=== PATIENT | female | born 1970 | race Caucasian/White ===

== ENCOUNTER 2018-11-24 18:21 | Emergency (ER) | payer SELFPAY ==
[~2018-11-24] VITALS: Ht 172.7 cm; Wt 63.5 kg
[2018-11-24 18:58] VITALS: BP 172/102
== END 2018-11-24 18:59 | disposition left against medical advice (07) ==
LOC: ER 18:24
DX: S61.211A Laceration without foreign body of left index finger without damage to nail, initial encounter (principal); F17.210 Nicotine dependence, cigarettes, uncomplicated; W26.0XXA Contact with knife, initial encounter
CPT/HCPCS: 99281

== ENCOUNTER 2019-08-05 19:57 | Emergency (ER) | payer SELFPAY ==
[~2019-08-05] VITALS: Ht 172.7 cm; Wt 63.5 kg
[2019-08-05 20:03] VITALS: BP 142/98
--- NOTE | 2019-08-05 20:05 | ED GU-Female ---
General Chief Complaint: - Urinary Stated Complaint: UTI SYMPTOMS Source: patient Exam Limitations: no limitations History of Present Illness Date Seen by Provider: Aug 05, 2019 Time Seen by Provider: 20:04 Initial Comments To ER with urinary frequency burning pressure that began 3 days ago, intermittent flank pain is not consistent with no vomiting no fevers. Timing/Duration: other (3 days) Severity/Quality: moderate Location: suprapubic Radiation: none Prior Genitourinary Problems: none Associated Symptoms: denies symptoms Allergies and Home Medications Allergies Coded Allergies: No Known Drug Allergies (Unverified , 08/05/19) Home Medications Sulfamethoxazole/Trimethoprim 1 Each Tablet, 1 EACH PO BID Prescribed by: MAXX CALIX on 08/05/192052 Patient Home Medication List Home Medication List Reviewed: Yes Review of Systems Review of Systems Constitutional: see HPI EENTM: see HPI Respiratory: no symptoms reported Cardiovascular: no symptoms reported Genitourinary: see HPI, burning, dysuria, frequency Musculoskeletal: see HPI Skin: no symptoms reported Psychiatric/Neurological: No Symptoms Reported Endocrine: No Symptoms Reported Hematologic/Lymphatic: No Symptoms Reported Past Kuazftq-Uibckt-Qlsjgc Hx Patient Social History Type Used: Cigarettes 2nd Hand Smoke Exposure: Yes Recent Hopitalizations: No Seasonal Allergies Seasonal Allergies: No Past Medical History Surgeries: No Respiratory: No Cardiac: No Neurological: No Genitourinary: No Gastrointestinal: No Musculoskeletal: No Endocrine: No HEENT: No Cancer: No Psychosocial: No Integumentary: No Physical Exam Vital Signs Vital Signs - First Documented 08/05/19 20:03 Temp 99.4 Pulse 109 Resp 18 B/P (MAP) 142/98 (113) Pulse Ox 98 Capillary Refill : Height, Weight, BMI Height: 5'8.00" Weight: 140lbs. 0oz. 63.832858mb; BMI Method:Stated General Appearance: WD/WN, no apparent distress Neck: non-tender, full range of motion Cardiovascular: no murmur, tachycardia Respiratory: no respiratory distress, no accessory muscle use Gastrointestinal: normal bowel sounds, soft Back: No CVA tenderness (R); CVA tenderness (L) Extremities: normal range of motion, non-tender Neurologic/Psychiatric: alert, normal mood/affect, oriented x 3 Skin: normal color, warm/dry Progress/Results/Core Measures Suspected Sepsis SIRS Temperature: Pulse: Respiratory Rate: Blood Pressure / Mean: Results/Orders Lab Results Laboratory Tests Test 08/05/19 20:12 Range/Units Urine Color ORANGE H Urine Clarity SL CLOUDY Urine pH 7 5-9 Urine Specific Straughn 1.015 L 1.016-1.022 Urine Protein 4+ NEGATIVE Urine Glucose (UA) NEGATIVE NEGATIVE Urine Ketones NEGATIVE NEGATIVE Urine Nitrite POSITIVE H NEGATIVE Urine Bilirubin 3+ H NEGATIVE Urine Urobilinogen 12 H NORMAL MG/DL Urine Leukocyte Esterase 3+ H NEGATIVE Urine RBC (Auto) 4+ H NEGATIVE Urine RBC 5-10 H /HPF Urine WBC >100 H /HPF Urine Squamous Epithelial Cells 2-5 /HPF Urine Crystals NONE /LPF Urine Bacteria MODERATE H /HPF Urine Casts NONE /LPF Urine Mucus SMALL H /LPF Urine Culture Indicated YES Urine Opiates Screen NEGATIVE NEGATIVE Urine Oxycodone Screen NEGATIVE NEGATIVE Urine Methadone Screen NEGATIVE NEGATIVE Urine Propoxyphene Screen NEGATIVE NEGATIVE Urine Barbiturates Screen NEGATIVE NEGATIVE Ur Tricyclic Antidepressants Screen NEGATIVE NEGATIVE Urine Phencyclidine Screen NEGATIVE NEGATIVE Urine Amphetamines Screen POSITIVE H NEGATIVE Urine Methamphetamines Screen POSITIVE H NEGATIVE Urine Benzodiazepines Screen NEGATIVE NEGATIVE Urine Cocaine Screen NEGATIVE NEGATIVE Urine Cannabinoids Screen POSITIVE H NEGATIVE My Orders Orders - MAXX CALIX APRN Ua Culture If Indicated (08/05/19 20:00) Drug Screen Stat (Urine) (08/05/19 20:02) Urine Bedside (08/05/19 20:03) Urine Culture (08/05/19 20:12) Sulfamethoxazole/Trimet Ds Tab (Bactrim (08/05/19 21:00) Vital Signs/I&O 08/05/19 20:03 Temp 99.4 Pulse 109 Resp 18 B/P (MAP) 142/98 (113) Pulse Ox 98 Capillary Refill : Departure Communication (Admissions) 2100-went to discharge the patient and she is no longer in the room. Impression Primary Impression: Urinary tract infection Qualified Codes: N30.00 - Acute cystitis without hematuria Additional Impression: left before discharge Disposition: 01 HOME, SELF-CARE Condition: Stable Departure-Patient Inst. Decision time for Depature: 20:52 Referrals: NO,LOCAL PHYSICIAN (PCP/Family) Primary Care Physician Patient Instructions: Urinary Tract Infection, Adult (DC) Scripts Sulfamethoxazole/Trimethoprim (Bactrim Ds Tablet) 1 Each Tablet 1 EACH PO BID, #14 TAB Prov: MAXX CALIX APRN 08/05/19 MAXX CALIX APRN Aug 05, 2019 20:05
[2019-08-05 20:19] LABS: GLUCOSE, URINE (UA) NEGATIVE (NEGATIVE); KETONES,URINE NEGATIVE (NEGATIVE); LEUKOCYTE ESTERASE ,URINE 3+ (NEGATIVE); NITRITE,URINE POSITIVE (NEGATIVE); PROTEIN,URINE 4+ (NEGATIVE); UROBILINOGEN,URINE 12 MG/DL (NORMAL)
[2019-08-05 20:33] LABS: CLARITY,URINE SL CLOUDY; COLOR,URINE ORANGE
[2019-08-05 20:38] LABS: BILIRUBIN,URINE 3+ (NEGATIVE); PH,URINE 7 (5-9)
[2019-08-05 20:39] LABS: BACTERIA,URINE MODERATE /HPF; WBC,URINE >100 /HPF
[2019-08-05 20:40] LABS: AMPHETAMINE SCREEN, URINE POSITIVE (NEGATIVE); BARBITURATE SCREEN URINE NEGATIVE (NEGATIVE); BENZODIAZEPINES SCREEN URINE NEGATIVE (NEGATIVE); CANNABINOID SCREEN, URINE POSITIVE (NEGATIVE); COCAINE SCREEN URINE NEGATIVE (NEGATIVE); METHADONE STAT NEGATIVE (NEGATIVE); METHAMPHETAMINE SCREEN URINE S POSITIVE (NEGATIVE); OPIATE SCREEN URINE NEGATIVE (NEGATIVE); OXYCODONE STAT NEGATIVE (NEGATIVE); PROPOXYPHENE STAT NEGATIVE (NEGATIVE); TRICYCLIC ANTIDEPRESSANTS SCRE NEGATIVE (NEGATIVE)
[2019-08-05] MEDS ORDERED: SULF1TAB35 PO (20:53)
[2019-08-05] MEDS ORDERED: TRIM/SULFAMETH 160/800 (SEPTRA DS) TAB PO ONE (21:00)
== END 2019-08-05 21:05 | disposition home or self-care (01) ==
LOC: EDUNIT# 19:57 → ER 19:58
DX: N39.0 Urinary tract infection, site not specified (principal); Z77.22 Contact with and (suspected) exposure to environmental tobacco smoke (acute) (chronic)
CPT/HCPCS: 80306; 81000; 84703; 87077; 87088; 99282

== ENCOUNTER 2022-07-05 23:36 | Emergency (ER) | payer SELFPAY ==
[~2022-07-05 23:36] MED LIST: SULF1TAB38 PO
[2022-07-06] MEDS ORDERED: RX-NAPROXEN (NAPROSYN) 250 MG TAB PPK#4 PO STA (02:21)
[2022-07-06] MEDS ORDERED: TRAM-42 PO (02:25)
[2022-07-06] MEDS ORDERED: NAPR500T8 PO (02:25)
--- NOTE | 2022-07-06 02:25 | ED Lower Extremity ---
General Chief Complaint: Lower Extremity Stated Complaint: RT KNEE PX,PER PT NO FALL OR INJURY Nursing Triage Note: PT ARRIVAL TO ER WITH COMPLAINT OF RIGHT KNEE PAIN X3 DAYS. PT DENIES INJURY OR TRAUMA. PT STATES THAT IT HAS DONE THIS BEFORE AND JUST WENT AWAY AFTER TWO DAYS. PT STATES THAT THIS TIME ITS MORE SEVERE. PT DENIES TAKING ANYTHING FOR THE PAIN. NOTICEABLE SWELLING TO KNEE. Source: patient History of Present Illness Date Seen by Provider: Jul 06, 2022 Time Seen by Provider: 01:40 Initial Comments PT ARRIVES VIA POV FROM HOME C/O RIGHT KNEE PAIN AND SWELLING X 3 DAYS NO INJURY OR UNUSUAL ACTIVITY NO SQUATTING, NO CLIMBING STAIRS/LADDERS, ETC. NO NEW SHOES, ETC. HAD THE SAME THING HAPPEN ABOUT A YEAR AGO, WITHOUT AN INJURY, BUT IT WENT AWAY AFTER A COUPLE OF DAYS--NEVER SOUGHT CARE STATES THE PAIN AND SWELLING IS MUCH WORSE THIS TIME. NO OTHER JOINTS ARE INVOLVED NO PARESTHESIAS OR MOTOR DEFICITS STATES SHE CANNOT PUT ANY WEIGHT ON IT. HAS NOT TAKEN ANYTHING FOR PAIN PT HAS HISTORY OF HTN, BUT SELF DC'D HER MEDICATION OVER 6 MONTHS AGO--HAS NO IDEA WHAT MEDICATION SHE WAS PRESCRIBED DENIES ANY OTHER MEDICAL PROBLEMS, AND DOES NOT TAKE ANY DAILY MEDICATIONS Allergies and Home Medications Allergies Coded Allergies: No Known Drug Allergies (Unverified , 08/05/19) Patient Home Medication List Naproxen (Naproxen) 500 Mg Tablet.dr, 500 MG PO BID Prescribed by: JOSELUIS VILA on 07/06/22224 Sulfamethoxazole/Trimethoprim (Bactrim Ds Tablet) 1 Each Tablet, 1 EACH PO BID Prescribed by: MAXX CALIX on 08/05/192052 Tramadol HCl (Ultram) 50 Mg Tablet, 50 MG PO Q4H Prescribed by: JOSELUIS VILA on 07/06/22224 Review of Systems Constitutional: no symptoms reported Musculoskeletal: see HPI Skin: no symptoms reported Psychiatric/Neurological: No Symptoms Reported Past Uwgqxus-Wtatsa-Xfdglz Hx Patient Social History Tobacco Use?: Yes Tobacco type used: Cigarettes Smoking Status: Current Everyday Smoker Use of E-Cig and/or Vaping dev: No Substance use?: No Alcohol Use?: No Pt feels they are or have been: No Immunizations Up To Date Influenza Vaccine Up-to-Date: Yes; Up-to-Date Third COVID19 Vaccination Date: 09/18 COVID19 Vaccine Jinriksha Driver: MODERNA Seasonal Allergies Seasonal Allergies: No Past Medical History Surgeries: No Respiratory: No Cardiac: Yes Hypertension Neurological: No Genitourinary: No Gastrointestinal: No Musculoskeletal: Yes (RIGHT KNEE PAIN ) Endocrine: No HEENT: No Cancer: No Psychosocial: No Integumentary: No Blood Disorders: No Physical Exam Vital Signs Vital Signs - First Documented 07/06/22 00:15 Temp 37.1 Pulse 93 Resp 18 B/P (MAP) 192/96 (128) Pulse Ox 99 O2 Delivery Room Air Capillary Refill : Less Than 3 Seconds Height, Weight, BMI Height: 5'8.00" Weight: 140lbs. 0oz. 63.970108ln; BMI Method:Stated Progress/Results/Core Measures Results/Orders My Orders Orders - JOSELUIS VILA DO Knee, Right, 3 Views (07/06/22 01:48) Jason Bandage (07/06/22 02:17) Knee Immobilizer (07/06/22 02:17) Crutches (07/06/22 02:21) Rx-Naproxen (Rx-Naprosyn) (07/06/22 02:21) Rx-Tramadol Hcl (Rx-Ultram) (07/06/22 02:21) Vital Signs/I&O 07/06/22 07/06/22 00:15 03:00 Temp 37.1 Pulse 93 81 Resp 18 18 B/P (MAP) 192/96 (128) 154/87 Pulse Ox 99 99 O2 Delivery Room Air Room Air Blood Pressure Mean: 128 Departure Impression Primary Impression: Pain and swelling of right knee Disposition: 01 HOME, SELF-CARE Condition: Stable Departure-Patient Inst. Decision time for Depature: :22 Referrals: POLI GARNER MD [facility] [place] Patient Instructions: Going Up and Down Curbs or Stairs With a Walker or Crutches, How to Use Crutches, How to Use an Elastic Bandage, Knee Immobilizer (DC), Knee Pain ED Add. Discharge Instructions: JASON WRAP, KNEE IMMOBILIZER AND CRUTCHES ICE TO AREA AT 20 MINUTE INTERVALS ELEVATE LEG MUCH POSSIBLE FOLLOW UP WITH DR. GARNER THIS WEEK FOR FURTHER CARE All discharge instructions reviewed with patient and/or family. Voiced understanding. Scripts Tramadol HCl (Ultram) 50 Mg Tablet 50 MG PO Q4H for Pain, #20 TAB Prov: JOSELUIS VILA DO 07/06/22 Naproxen (Naproxen) 500 Mg Tablet.dr 500 MG PO BID, #20 TAB Prov: JOSELUIS VILA DO 07/06/22 JOSELUIS VILA DO Jul 06, 2022 02:25
[2022-07-06 03:00] VITALS: BP 154/87
--- NOTE | 2022-07-06 06:49 | Diagnostic Imaging Report ---
EXAMINATION: Right knee radiograph EXAM DATE: 07/06/2022 2:25 AM COMPARISON: None available. HISTORY: knee pain TECHNIQUE: 3 views FINDINGS: There is no acute fracture, dislocation, or destructive osseous process. The joint spaces are normal. The soft tissues are normal. IMPRESSION: 1. No acute osseous abnormality. Dictated by: Dictated on workstation # [id number]
== END 2022-07-06 03:01 | disposition home or self-care (01) ==
LOC: EDUNIT# 23:36 → ER 23:39
DX: M25.561 Pain in right knee (principal); M79.89 Other specified soft tissue disorders; F17.210 Nicotine dependence, cigarettes, uncomplicated
CPT/HCPCS: 73562

== ENCOUNTER 2023-09-01 12:59 | Emergency (ER) | payer SELFPAY ==
[~2023-09-01] VITALS: Ht 172 cm; Wt 77.0 kg
[~2023-09-01 12:59] MED LIST changes: +NAPR500T8 PO; +TRAM-42 PO
[2023-09-01 13:04] VITALS: BP 148/86
== END 2023-09-01 13:51 | disposition left against medical advice (07) ==
LOC: EDUNIT# 12:59 → ER 13:01
DX: R51.9 Headache, unspecified (principal)
CPT/HCPCS: 99283